=== PATIENT | male | born 1990 | race Caucasian/White ===

== ENCOUNTER → 2016-11-21 | Outpatient (CLI) | payer OTHER ==
[2016-11-21 20:24] LABS: BASO % 0.3 % (0.0-1.0); EOS # 0.1 K/mm3 (0.0-0.50); EOS % 1.7 % (0.0-3.0); LARGE UNSTAINED CELL # 0.1 K/mm3 (0.0-0.4); LARGE UNSTAINED CELL % 1.6 % (0.0-4.0); LYMPH # 1.7 K/mm3 (1.5-6.5); LYMPH % 27.8 % (24.0-44.0); MEAN CORPUSCULAR HEMOGLOBIN 29.6 pg (27.0-33.0); MEAN CORPUSCULAR HGB CONC 32.9 g/dl (32.0-36.5); MEAN CORPUSCULAR VOLUME 89.9 fl (80.0-96.0); MONO # 0.4 K/mm3 (0.0-0.8); NEUTROPHILS # 3.6 K/mm3 (1.8-7.7); NEUTROPHILS % 61.6 % (36.0-66.0); PLATELET COUNT, AUTOMATED 310 k/mm3 (150-450); RED CELL DISTRIBUTION WIDTH 12.8 % (11.5-14.5); WHITE BLOOD COUNT 5.9 K/mm3 (4.0-10.0)
[2016-11-21 20:42] LABS: ALBUMIN 4.1 GM/DL (3.2-5.2); ALBUMIN/GLOBULIN RATIO 1.32 (1.00-1.93); ALKALINE PHOSPHATASE 97 U/L (45-117); ALT/SGPT 56 U/L (12-78); ANION GAP 8 MEQ/L (8-16); AST/SGOT 64 U/L (15-37); BILIRUBIN,TOTAL 0.5 MG/DL (0.2-1.0); BLOOD UREA NITROGEN 9 MG/DL (7-18); CALCIUM LEVEL 8.9 MG/DL (8.5-10.1); CARBON DIOXIDE LEVEL 31 MEQ/L (21-32); CHLORIDE LEVEL 104 MEQ/L (98-107); CREATININE FOR GFR 0.96 MG/DL (0.70-1.30); GLOMERULAR FILTRATION RATE > 60.0 (>60); GLUCOSE, FASTING 87 MG/DL (70-105); POTASSIUM SERUM 4.6 MEQ/L (3.5-5.1); SODIUM LEVEL 143 MEQ/L (136-145); TOTAL PROTEIN 7.2 GM/DL (6.4-8.2)
[2016-11-21 21:23] LABS: ERYTHROCYTE SEDIMENTATION RATE 2 mm/hr (0-15)
== END ==
LOC: M WUC 17:29
PROVIDERS: ATTEND Psychiatry & Neurology Neurology
DX: R55 Syncope and collapse (principal)

== ENCOUNTER → 2020-03-16 | Outpatient (CLI) | payer OTHER ==
[2020-03-16 17:25] LABS: HEMATOCRIT 45.6 % (42.0-52.0); HEMOGLOBIN 15.1 g/dl (13.5-17.5); MEAN CORPUSCULAR HEMOGLOBIN 28.5 pg (27.0-33.0); MEAN CORPUSCULAR HGB CONC 33.1 g/dl (32.0-36.5); PLATELET COUNT, AUTOMATED 382 10^3/uL (150-450); WHITE BLOOD COUNT 6.9 10^3/uL (4.0-10.0)
[2020-03-16 17:52] LABS: ALBUMIN 4.4 GM/DL (3.2-5.2); ALT/SGPT 25 U/L (12-78); BILIRUBIN,TOTAL 0.8 MG/DL (0.2-1.0); BLOOD UREA NITROGEN 9 MG/DL (7-18); C REACTIVE PROTEIN QUANTITATIV < 0.30 MG/DL (0.00-0.30); CALCIUM LEVEL 9.2 MG/DL (8.5-10.1); CARBON DIOXIDE LEVEL 30 MEQ/L (21-32); CHLORIDE LEVEL 100 MEQ/L (98-107); CREATININE FOR GFR 0.89 MG/DL (0.70-1.30); GLOMERULAR FILTRATION RATE > 60.0 (>60); GLUCOSE, FASTING 108 MG/DL (70-100); POTASSIUM SERUM 4.1 MEQ/L (3.5-5.1); SODIUM LEVEL 136 MEQ/L (136-145); TOTAL PROTEIN 7.4 GM/DL (6.4-8.2)
[2020-03-22 16:09] LABS: F002-IgE Milk < 0.10 kU/L (Class 0); F004-IgE Wheat < 0.10 kU/L (Class 0); F013-IgE Peanut < 0.10 kU/L (Class 0); F014-IgE Soybean < 0.10 kU/L (Class 0); F026-IgE Pork < 0.10 kU/L (Class 0); F027-IgE Beef < 0.10 kU/L (Class 0); F245-IgE Egg, Whole < 0.10 kU/L (Class 0); FX02-IgE Food Mix (Sea Foods) Negative (.); TISSUE TRANSGLUTAMINASE IgA <2 U/mL (0-3)
== END ==
LOC: M PLALAB 15:54
PROVIDERS: ATTEND Internal Medicine Gastroenterology
DX: K29.00 Acute gastritis without bleeding (principal); K92.0 Hematemesis; R10.13 Epigastric pain; R10.84 Generalized abdominal pain

== ENCOUNTER 2020-04-26 18:55 | Inpatient (IN) | payer OTHER ==
[2020-04-26] MEDS ORDERED: OLANZapine INTRAMUSCULAR 10MG VIAL ONE (20:19)
[2020-04-26] MEDS ORDERED: NICOTINE 21MG/24HR 1 EA TRANSDERMAL As Ordered ONE (20:19)
[2020-04-26] MEDS ORDERED: NICOTINE 21MG/24HR 1 EA TRANSDERMAL ONE (20:19)
[2020-04-26] MEDS ORDERED: OLANZapine INTRAMUSCULAR 10MG VIAL As Ordered ONE (20:30)
[2020-04-27] MEDS ORDERED: DIVALPROEX 250 MG TAB As Ordered ONE ×3 (10:17→21:47)
[2020-04-27] MEDS ORDERED: NICOTINE 21MG/24HR 1 EA TRANSDERMAL As Ordered ONE (10:17)
[2020-04-27] MEDS ORDERED: OLANZapine ORAL DISINTEGRATING TAB 5MG As Ordered ONE ×3 (10:17→19:34)
[2020-04-27] MEDS ORDERED: LORazepam 1 MG TAB As Ordered ONE (14:07)
[2020-04-27] MEDS ORDERED: diphenhydrAMINE 50MG CAP As Ordered ONE (21:16)
[2020-04-27] MEDS ORDERED: LORazepam 2 MG TAB As Ordered ONE (21:16)
[2020-04-27] MEDS ORDERED: QUEtiapine FUMARATE 50 MG TAB As Ordered ONE (21:48)
[2020-04-28] MEDS ORDERED: OLANZapine ORAL DISINTEGRATING TAB 5MG As Ordered ONE ×3 (00:23→20:23)
[2020-04-28] MEDS ORDERED: DIVALPROEX 250 MG TAB As Ordered ONE (08:02)
[2020-04-28] MEDS ORDERED: NICOTINE 21MG/24HR 1 EA TRANSDERMAL As Ordered ONE (08:02)
[2020-04-28] MEDS ORDERED: LORazepam 1 MG TAB As Ordered ONE (08:02)
[2020-04-28] MEDS ORDERED: QUEtiapine FUMARATE 50 MG TAB As Ordered ONE (20:23)
[2020-04-28] MEDS ORDERED: DIVALPROEX 500 MG TAB As Ordered ONE (20:23)
[2020-04-29] MEDS ORDERED: DIVALPROEX 500 MG TAB As Ordered ONE ×2 (08:00→20:41)
[2020-04-29] MEDS ORDERED: NICOTINE 21MG/24HR 1 EA TRANSDERMAL As Ordered ONE ×2 (08:00→11:42)
[2020-04-29] MEDS ORDERED: OLANZapine ORAL DISINTEGRATING TAB 5MG As Ordered ONE ×4 (08:00→21:14)
[2020-04-29] MEDS ORDERED: QUEtiapine FUMARATE 50 MG TAB As Ordered ONE (20:41)
[2020-04-29] MEDS ORDERED: QUEtiapine FUMARATE 100 MG TAB As Ordered ONE (22:46)
[2020-04-30] MEDS ORDERED: NICOTINE 21MG/24HR 1 EA TRANSDERMAL As Ordered ONE (08:01)
[2020-04-30] MEDS ORDERED: DIVALPROEX 500 MG TAB As Ordered ONE ×2 (08:01→19:55)
[2020-04-30] MEDS ORDERED: OLANZapine 10 MG TAB As Ordered ONE (08:01)
[2020-04-30] MEDS ORDERED: OLANZapine ORAL DISINTEGRATING TAB 5MG As Ordered ONE ×3 (10:15→21:30)
[2020-04-30] MEDS ORDERED: MAALOX 30 ML SUSP *UDC As Ordered ONE (15:41)
[2020-04-30] MEDS ORDERED: QUEtiapine FUMARATE 50 MG TAB As Ordered ONE (19:55)
[2020-05-01] MEDS ORDERED: DIVALPROEX 500 MG TAB As Ordered ONE ×2 (08:08→20:29)
[2020-05-01] MEDS ORDERED: NICOTINE 21MG/24HR 1 EA TRANSDERMAL As Ordered ONE (08:09)
[2020-05-01] MEDS ORDERED: OLANZapine ORAL DISINTEGRATING TAB 5MG As Ordered ONE ×3 (08:09→20:30)
[2020-05-01] MEDS ORDERED: MAALOX 30 ML SUSP *UDC As Ordered ONE ×2 (14:48→19:28)
[2020-05-01] MEDS ORDERED: QUEtiapine FUMARATE 50 MG TAB As Ordered ONE (20:29)
[2020-05-01] MEDS ORDERED: ACETAMINOPHEN TAB 650MG DOSE (2X325MG) As Ordered ONE (20:30)
[2020-05-02] MEDS ORDERED: DIVALPROEX 500 MG TAB As Ordered ONE ×2 (08:53→21:14)
[2020-05-02] MEDS ORDERED: OLANZapine ORAL DISINTEGRATING TAB 5MG As Ordered ONE ×3 (08:53→21:14)
[2020-05-02] MEDS ORDERED: NICOTINE 21MG/24HR 1 EA TRANSDERMAL As Ordered ONE (08:54)
[2020-05-02] MEDS ORDERED: MOM 30ML SUSPENSION UDC As Ordered ONE (11:12)
[2020-05-02] MEDS ORDERED: ARIPiprazole MONOHYDRATE 400 MG INJ (ABILIFY) ONE (13:00)
[2020-05-02] MEDS ORDERED: QUEtiapine FUMARATE 25 MG TAB As Ordered ONE (21:14)
[2020-05-03] MEDS ORDERED: OLANZapine ORAL DISINTEGRATING TAB 5MG As Ordered ONE (08:08)
[2020-05-03] MEDS ORDERED: DIVALPROEX 500 MG TAB As Ordered ONE (08:08)
[2020-05-03] MEDS ORDERED: NICOTINE 21MG/24HR 1 EA TRANSDERMAL As Ordered ONE (08:08)
[2020-05-03] MEDS ORDERED: MAALOX 30 ML SUSP *UDC PO PRN (18:30)
[2020-05-03] MEDS ORDERED: OLANZapine ORAL DISINTEGRATING TAB 5MG PO PRN (18:30)
[2020-05-03] MEDS ORDERED: ACETAMINOPHEN TAB 650MG DOSE (2X325MG) PO PRN (18:30)
[2020-05-03] MEDS ORDERED: MOM 30ML SUSPENSION UDC PO PRN (18:30)
[2020-05-03] MEDS: DIVALPROEX 500 MG TAB PO SCH (20:23)
[2020-05-03] MEDS: QUEtiapine FUMARATE 50 MG TAB PO SCH (20:23)
[2020-05-03] MEDS: OLANZapine ORAL DISINTEGRATING TAB 5MG PO SCH (20:23)
[2020-05-04 06:14] VITALS: BP 135/77
--- NOTE | 2020-05-04 08:41 | MHIPNPDOC ---
[facility] Progress Note Progress Note DATE OF SERVICE: 05/03/20 Subjective HPI: Justin presents today for a follow-up visit. He states he has been in the facility for 6 days and feels he is ready to be discharged. Justin reports he is doing well, and he is waiting for lunch. Justin states he is ready to go back home to his parents as they will take care of him. He notes he found many benefits by being in the [place], but he feels his mental health has been affected by not going outside or being near nature. Justin apologizes for his behavior for the past couple of days and states he has been cooperative and would like to go home as soon as possible. MEDICATIONS: He mentions the Abilify shot he took yesterday seemed to help. Objective Behavior: Less overtly tangential, still circumstantial. Speech: Hyperverbal. Normal volume. Judgement: Poor. Insight: Poor. Assessment F31.10 Bipolar disorder, current episode manic without psychotic features, unspecified Plan Continue Zyprexa and Depakote. Unclear as to why the injectable Abilify was given as he has not been tried on oral, however, a combination could be helpful. Long-acting, I do agree would be useful for him. Will draw Depakote levels and LFTs today inaudible for a bit. Vital Signs Vital Signs Date Time Temp Pulse Resp B/P (MAP) Pulse Ox O2 Delivery O2 Flow Rate FiO2 05/04/20 06:14 96.9 89 18 135/77 (96) Current Medications Current Medications Medications (Trade) Dose Ordered Sig/Isac Route PRN Reason Start Time Stop Time Status Last Admin Dose Admin Acetaminophen (Tylenol Tab) 650 mg Q6H PRN PO PAIN OR DISCOMFORT 05/03/20 18:30 Al Hydrox/Mg Hydrox/Simethicone (Mylanta) 30 ml Q4H PRN PO HEARTBURN/INDIGESTION 05/03/20 18:30 Aripiprazole (AbiLIFY) 5 mg QHS PO 05/03/20 21:00 05/03/20 20:24 Divalproex Sodium (Depakote) 500 mg BID PO 05/03/20 21:00 05/03/20 20:23 Magnesium Hydroxide (Milk Of Magnesia) 30 ml DAILYPRN PRN PO CONSTIPATION 05/03/20 18:30 Nicotine (Nicoderm Cq 21mg) 1 patch DAILY TD 05/04/20 09:00 Olanzapine (ZyPREXA ZYDIS) 5 mg Q6H PRN PO ANXIETY/AGITATION 05/03/20 18:30 Olanzapine (ZyPREXA ZYDIS) 10 mg BID PO 05/03/20 21:00 05/03/20 20:23 Quetiapine Fumarate (SEROquel) 50 mg QHS PO 05/03/20 21:00 05/03/20 20:23 Allergies Coded Allergies: No Known Allergies (Unverified , 05/03/20) SANDRA GODOY DO May 04, 2020 08:41
--- NOTE | 2020-05-04 08:45 | MHIPNPDOC ---
[facility] Progress Note Progress Note DATE OF SERVICE: 05/04/20 Subjective HPI: Justin presents today for a follow-up visit. Justin states he enjoys the steadiness experienced by the medication and is ready for the next step. He denies any suicidal thoughts and is experiencing jitteriness from the medication, which is less than he usually has. Justin states he has an increase in his appetite but a decrease in his sexual appetite. He reports he lost nearly 40 lbs in the past three months from being hospitalized and has gained 20 lbs since he has been in this facility. MEDICATIONS: He states the Abilify shot is a good option for him. Objective Appearance: Well nourished. Appears to be stated age. Well groomed. Behavior: Cooperative with good eye contact. Engaged. Pleasant. Affect: Full range. Appropriate to context. Mood: Appropriately reactive. Euthymic. Generally good. Speech: Normal rate. Normal volume. Spontaneous and Fluid. Motor: No gross motor abnormalities. Cognition: Alert, Attentive, and Oriented to person, place, time. Memory: No gross abnormalities of short or care home memory noted during interview. No formal testing. Thought Form: Linear and goal directed. Thought Content: No thoughts of self harm. No evidence of suicidal ideation. No evidence of aggressive or homicidal ideation. No evidence of delusions. Perception: No perceptual abnormalities noted. Judgement: Intact as evidenced by decision making in the recent past. Insight: Good insight into symptoms and treatment options. Assessment F31.89 Other bipolar disorder Plan Continue Zyprexa and Depakote. Patient is back to a normal mental status exam at this time. Will arrange for discharge tomorrow. ps- depkote levels mildly high, will reduce depkote to 250mg qam and 500mg qhs Vital Signs Vital Signs Date Time Temp Pulse Resp B/P (MAP) Pulse Ox O2 Delivery O2 Flow Rate FiO2 05/04/20 06:14 96.9 89 18 135/77 (96) Current Medications Current Medications Medications (Trade) Dose Ordered Sig/Isac Route PRN Reason Start Time Stop Time Status Last Admin Dose Admin Acetaminophen (Tylenol Tab) 650 mg Q6H PRN PO PAIN OR DISCOMFORT 05/03/20 18:30 Al Hydrox/Mg Hydrox/Simethicone (Mylanta) 30 ml Q4H PRN PO HEARTBURN/INDIGESTION 05/03/20 18:30 Aripiprazole (AbiLIFY) 5 mg QHS PO 05/03/20 21:00 05/03/20 20:24 Divalproex Sodium (Depakote) 500 mg BID PO 05/03/20 21:00 05/03/20 20:23 Magnesium Hydroxide (Milk Of Magnesia) 30 ml DAILYPRN PRN PO CONSTIPATION 05/03/20 18:30 Nicotine (Nicoderm Cq 21mg) 1 patch DAILY TD 05/04/20 09:00 Olanzapine (ZyPREXA ZYDIS) 5 mg Q6H PRN PO ANXIETY/AGITATION 05/03/20 18:30 Olanzapine (ZyPREXA ZYDIS) 10 mg BID PO 05/03/20 21:00 05/03/20 20:23 Quetiapine Fumarate (SEROquel) 50 mg QHS PO 05/03/20 21:00 05/03/20 20:23 Allergies Coded Allergies: No Known Allergies (Unverified , 05/03/20) SANDRA GODOY DO May 04, 2020 08:45
[2020-05-04] MEDS: OLANZapine ORAL DISINTEGRATING TAB 5MG PO SCH ×2 (09:36→20:53)
[2020-05-04] MEDS: NICOTINE 21MG/24HR 1 EA TRANSDERMAL TD SCH (09:36)
[2020-05-04] MEDS: DIVALPROEX 500 MG TAB PO SCH (09:36)
[2020-05-04] MEDS ORDERED: PANT40TA29 PO (09:45)
[2020-05-04] MEDS ORDERED: DICY20TA11 PO (09:45)
[2020-05-04] MEDS ORDERED: HYDR-643 PO (09:45)
[2020-05-04] MEDS ORDERED: ASEN5TA SL (09:45)
[2020-05-04] MEDS ORDERED: SUCR1TA PO (09:45)
[2020-05-04] MEDS ORDERED: CALC500T61 PO (09:45)
[2020-05-04 09:49] LABS: ALBUMIN 3.9 GM/DL (3.2-5.2); BILIRUBIN,DIRECT 0.1 MG/DL (0.0-0.2); BILIRUBIN,TOTAL 0.3 MG/DL (0.2-1.0); TOTAL PROTEIN 6.7 GM/DL (6.4-8.2)
[2020-05-04 16:52] VITALS: BP 132/90
[2020-05-04] MEDS: QUEtiapine FUMARATE 50 MG TAB PO SCH (20:53)
[2020-05-04] MEDS ORDERED: DIVALPROEX 500 MG TAB PO SCH (21:00)
[2020-05-05 06:50] VITALS: BP 144/98
[2020-05-05] MEDS: OLANZapine ORAL DISINTEGRATING TAB 5MG PO SCH (08:45)
[2020-05-05] MEDS: NICOTINE 21MG/24HR 1 EA TRANSDERMAL TD SCH (08:47)
[2020-05-05] MEDS ORDERED: DIVALPROEX 250 MG TAB PO SCH (09:00)
--- NOTE | 2020-05-05 11:49 | MHDSPDOC ---
[facility] Discharge Summary Discharge Summary DATE OF ADMISSION: Apr 27, 2020 at 10:00 DATE OF DISCHARGE:May 05, 2020 at 13:30 DISCHARGE DIAGNOSES: F31.9 Bipolar disorder, unspecified F30.9 Manic episode, unspecified CONSULTANTS INVOLVED:[ None (basic hospitalist screening)] REASON FOR ADMISSION & TREATMENT AND PROGRESS ON THE UNIT : Justin presents today for concerns regarding his inpatient admission. The patient was admitted to the inpatient mental health unit after being found quite delusional and manic. Has a history of bipolar, but recently on Saphris, however appeared to decompensate. He was pleasant although hyper and spoke so quickly he was nearly incoherent. He made solid progress becoming much less tangential and his hyper-verbal nature resolved quite quickly. He returned to normal mental status exam with no major behavioral problems. MEDICATIONS: He was started on Zyprexa 5 mg increased to 10 mg BID. The patient did well, however, it was augmented with Depakote increased to 500 mg BID. His Depakote level is mildly high at above 1, thus it was lowered to 250 mg in the morning and 500 at night. He was additionally based on Abilify 5 mg by one of the covering providers and given Abilify may tune up. Although not ideal, the plan for this patient is to taper to a mono therapy as he seems to favor the Abilify, however, given his very tenuous treatment and the significant need for multiple medications, will continue this as he leaves. DISCHARGE ASSESSMENT[improved] Legal status considerations: The patient at the time of discharge did not meet criteria for involuntary admission/extension due to having a [normal] mental status exam, [fair] insight into the situation, They are engaged in the discharge process, as well as being friendly and amenable in behavioral control and havent been engaging in any observed concerning behavior or ideation recently. They decline voluntary extension/admission at this time and must be discharged in good kurt, as Im unable to make a case for holding the patient against their will. They may have historical risk factors of admissions and other interactions with psychiatry however, those are not modifiable from a clinical perspective. The patient will need to be discharged in good kurt. MENTAL STATUS EXAMINATION ON DISCHARGE: [General: Well dressed with good hygiene Speech: Spontaneous and fluid Thought processes: Linear and logical Thought content: Future orientated Abstract reasoning, and computation: Intact Description of associations: Intact Description of abnormal or psychotic thoughts:Denies any suicidal or homicidal ideation. Denies any auditory or visual hallucinations. Does not appear to be responding to internal stimuli. Does not appear to be endorsing any bizarre or paranoid ideation. Judgment: fair Insight: fair Orientation: Alert and orientated 3 Recent and remote memory: Intact Attention span and concentration: Intact Fund of knowledge: Adequate Mood: "okay" Affect: Euthymic with a full range] PLAN/FOLLOWUP ARRANGEMENTS: Follow up appointments made (PCP and MH in 5 days of D/C date) and safety plan completed. Safety Planning aspects completed prior to discharge [Medication supplies limited to 7 days with 4 refills to prevent accumulation to OD] [Family contact completed, educated on safe practices, instructed on removal and mitigation of dangerous means] [RN reviewed crisis hotline information and other aspects to empower patient to access care in interim before next appointment.] Use of injectable medicines to reduce risk of readmission and noncompliance The amount of time spent in the coordination of care for this patient was approximately 30 minutes. Vital Signs/I&Os Vital Signs Date Time Temp Pulse Resp B/P (MAP) Pulse Ox O2 Delivery O2 Flow Rate FiO2 05/05/20 06:50 97.7 81 16 144/98 (113) Room Air Medications Scheduled Aripiprazole (Abilify) 5 Mg Tablet, 5 MG PO QHS for mood for 7 Days, #7 Aripiprazole Monohydrate (Abilify Maintena) 400 Mg Suser.vial, 400 MG IM Q30D for mood for 30 Days, #400 next due 06/03/20 Divalproex Sodium (Depakote) 500 Mg Tablet.dr, 500 MG PO QHS for mood for 7 Days, #7 Divalproex Sodium (Depakote) 250 Mg Tablet.dr, 250 MG PO QAM for mood for 7 Days, #7 Nicotine (Nicotine Patch) 21 Mg Patch.td24, 1 PATCH TD DAILY for tobacco for 30 Days, #30 Olanzapine (Olanzapine) 20 Mg Tablet, 0.5 TAB PO BID for mood for 30 Days, #5 Allergies Coded Allergies: No Known Allergies (Unverified , 05/03/20) SANDRA GODOY DO May 05, 2020 11:49
[2020-05-05] MEDS ORDERED: ABIL400I IM (11:53)
[2020-05-05] MEDS ORDERED: ABIL1TAB11 PO (11:53)
[2020-05-05] MEDS ORDERED: DEPA1TAB3 PO (11:53)
[2020-05-05] MEDS ORDERED: DEPA250T32 PO (11:53)
[2020-05-05] MEDS ORDERED: OLAN10TA2 PO (11:53)
[2020-05-05] MEDS ORDERED: NICO21PAT TD (11:53)
[2020-05-06] MEDS ORDERED: OLAN20TA14 PO (08:39)
--- NOTE | 2020-06-20 13:10 | MHHPE ---
DATE OF ADMISSION: 04/26/2020 DATE OF EVALUATION: 04/27/2020 I would like to clarify that the entire computer and internet system at [facility] has been down and so the only information that I have available from this patient is that which was done in the emergency room prior to the patient being admitted. Also, the patient was very psychotic with pressured speech, flight of ideas, and basically I could not gather any further information from him. Therefore, the following information is all gathered from the emergency room evaluation. Apparently, the patient was brought in by his parents. He had just been discharged from [facility] about a week ago and quickly decompensated again. The patient, in the emergency room, basically stated that he needed help with narcolepsy and that he wanted to get a refill for his Adderall. Apparently, he had been discharged on Abilify 5 mg nightly, Depakote 250 mg three times a day, Seroquel 50 mg nightly as needed, but it is not clear what the criteria is to take this. 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 According to the parents, he was trashing the house, he was trying to start a bonfire with a can of gas. The family indicated that the patient had a history of bipolar disorder and schizophrenia, that he had not been sleeping. The mother indicated that the patients baseline is never argumentative as he is now. ADDENDUM DATE OF ADMISSION: 04/26/2020 DATE OF EVALUATION: 04/27/2020 PAST PSYCHIATRIC HISTORY: The only information I have is that he had just been discharged from [facility] about a week ago. There is no history of this patient ever having made any suicidal attempts and he was not suicidal or homicidal when he presented to the emergency room. FAMILY HISTORY: Unknown. ABUSE HISTORY: Unknown. SUBSTANCE ABUSE HISTORY: The emergency room records say that he has a history of abusing cannabis, however his toxicology screen was negative. MEDICAL HISTORY: Unknown. MENTAL STATUS EXAMINATION: This patient is alert, he is oriented times three. Eye contact is good. Psychomotor activity is increased. He has pressured speech, flight of ideas. Mood is manic. Affect is labile. He has grandiose delusions. Concentration is poor. Memory is grossly intact. He is not suicidal or homicidal. Insight and judgment is poor. DIAGNOSIS: Bipolar disorder type 1, manic with psychotic symptoms. TREATMENT PLAN: At this point, the patient is very manic and labile. I will go ahead and continue his Abilify 5 mg nightly, Depakote 250 mg three times a day, Seroquel 50 mg nightly as needed. However, I am going to put him on Zyprexa Zydis 10 mg twice a day and I will give him as needed doses of Ativan. MTDD
--- NOTE | 2020-06-24 17:17 | MHIPN ---
DATE: 05/01/2020 HISTORY OF PRESENT ILLNESS: The patient is a 30-year-old male with history of bipolar disorder who is currently treated for this illness at the inpatient mental health unit. He has been hospitalized approximately 1 week and he is beginning to show response to treatment. SUBJECTIVE: The patient reports he wants to go home, he wants to see the sun, wear his own personal clothes, hug his mom. He says he is tired of not being able to go outside, not being able to go out for a cigarette, not being able to wear his own clothes. The patient denies feeling suicidal or homicidal, he denies auditory, visual, or tactile hallucinations, and denies thought delusions. OBJECTIVE (MENTAL STATUS EXAMINATION): The patient was dressed in hospital clothes, his nails on one hand were painted a yellow tone and on the other hand they were like pinkish-lavender, he was pleasant and cooperative, friendly, had good eye contact. His speech is still pressured and rapid, tangential and circumstantial, it is continuous and fluent. His thought process is tangential and circumstantial, his thought content is positive for anxious thoughts but is negative for suicidal or homicidal thoughts. He denies thought delusions. He denies auditory, visual, or tactile hallucinations and he was not seen responding to internal stimuli. His insight and judgment are still limited because he is still ill but he does not see it that way. ASSESSMENT AND PLAN: The patient is still labile, he is very pleasant most of the time, he smiles and laughs frequently but he also cries very easily, he becomes tearful because he says he misses his mom and his house and his parents. At times, he becomes irritable but not violent. Overall, the patient is having a good response to medications and compared to how he was observed last week, he is less hyperactive, his speech is less pressured, although he still has racing thoughts and he is still not insightful about how ill he still is. He wanted to be discharged today, but I told him he has to be patient and he has to wait to improve. Yesterday, he wanted to be discharged and he told me he had been told by somebody else that he could be discharged yesterday. Today, he told me that somebody had told him that he could be discharged today and possibly tomorrow he will say the same thing because that is what he really wants, but he is still not ready for discharge. Will continue to monitor and adjust medications accordingly. EFREM
--- NOTE | 2020-07-01 07:36 | MHIPN ---
DATE: 05/02/2020 HISTORY OF PRESENT ILLNESS: The patient remains quite manic with very pressured speech and he is very grandiose talking about how being in the hospital has been my very best working vacation. He talks about how he has been working very hard to stop his pressured speech, etc. MENTAL STATUS EXAM: This patient is alert and oriented times 3. Speech is pressured with flight of ideas. His mood is manic and affect is appropriate to mood and the patient has grandiose delusions and he denies any suicidal or homicidal ideations. Concentration is poor. Memory is intact. Insight and judgment poor. DIAGNOSIS: Unspecified psychiatric disorder, rule out bipolar disorder. TREATMENT PLAN: At this point the patient remains quite manic. I did review the medications that he was on and he is on: * Abilify 5 mg at bedtime. * Seroquel 50 mg at bedtime. * Zyprexa 10 mg twice a day p.r.n. * Depakote 500 mg twice a day. It seems from the patients history that he became noncompliant with his treatment after his first psychiatric hospitalization recently and I recommended and the patient agreed to start on Abilify Maintena 400 IM and we will give him his first dose today. MTDD
[2020-07-12 14:18] LABS: BASO % 0.6 % (0.0-1.0); EOS # 0.1 10^3/uL (0.0-0.5); EOS % 1.7 % (0.0-3.0); HEMATOCRIT 35.4 % (42.0-52.0); HEMOGLOBIN 11.8 g/dl (13.5-17.5); LYMPH # 2.1 10^3/uL (1.5-5.0); LYMPH % 39.3 % (24.0-44.0); MEAN CORPUSCULAR HEMOGLOBIN 28.9 pg (27.0-33.0); MEAN CORPUSCULAR HGB CONC 33.3 g/dl (32.0-36.5); MEAN CORPUSCULAR VOLUME 86.8 fl (80.0-96.0); MONO # 0.5 10^3/uL (0.0-0.8); MONO % 8.6 % (0.0-5.0); NEUTROPHILS # 2.7 10^3/uL (1.5-8.5); NEUTROPHILS % 49.1 % (36.0-66.0); PLATELET COUNT, AUTOMATED 325 10^3/uL (150-450); RED BLOOD COUNT 4.08 10^6/uL (4.30-6.10); WHITE BLOOD COUNT 5.5 10^3/uL (4.0-10.0)
[2020-07-15 13:57] LABS: ACETAMINOPHEN LEVEL < 2.0 UG/ML (10.0-30.0); ALBUMIN 4.1 GM/DL (3.2-5.2); ALT/SGPT 20 U/L (12-78); BILIRUBIN,DIRECT < 0.1 MG/DL (0.0-0.2); BILIRUBIN,TOTAL 0.2 MG/DL (0.2-1.0); BLOOD UREA NITROGEN 12 MG/DL (7-18); CARBON DIOXIDE LEVEL 26 MEQ/L (21-32); CHLORIDE LEVEL 108 MEQ/L (98-107); CREATININE FOR GFR 0.74 MG/DL (0.70-1.30); ETHYL ALCOHOL (ETHANOL) 0.007 % (0.000-0.010); GLOMERULAR FILTRATION RATE > 60.0 (>60); GLUCOSE, FASTING 88 MG/DL (70-100); SALICYLATE LEVEL 2.4 MG/DL (5.0-30.0); SODIUM LEVEL 140 MEQ/L (136-145); TOTAL PROTEIN 6.7 GM/DL (6.4-8.2)
[2020-07-15 13:59] LABS: AMPHETAMINES LEVEL URINE NEGATIVE (NEGATIVE); BARBITURATES URINE NEGATIVE (NEGATIVE); BENZODIAZEPINES URINE NEGATIVE (NEGATIVE); CANNABINOIDS URINE NEGATIVE (NEGATIVE); COCAINE METABOLITE URINE NEGATIVE (NEGATIVE); METHADONE URINE NEGATIVE (NEGATIVE); OPIATES URINE NEGATIVE (NEGATIVE); PHENCYCLIDINE URINE NEGATIVE (NEGATIVE)
== END 2020-05-05 13:30 | disposition home or self-care (01) | DRG 753 ==
LOC: M ED 18:55 → M PSY 04-27 10:00
PROVIDERS: ADMIT Psychiatry & Neurology Addiction Medicine; ATTEND Psychiatry & Neurology Addiction Medicine
DX: F31.2 Bipolar disorder, current episode manic severe with psychotic features (principal); Z79.899 Other long term (current) drug therapy

== ENCOUNTER → 2020-05-27 | Outpatient (CLI) | payer OTHER ==
[~2020-05-27] MED LIST: ABIL1TAB11 PO; ABIL400I IM; ASEN5TA SL; CALC500T61 PO; DEPA1TAB3 PO; DEPA250T32 PO; DICY20TA11 PO; HYDR-643 PO; NICO21PAT TD; OLAN10TA2 PO; OLAN20TA14 PO; PANT40TA29 PO; SUCR1TA PO
[2020-05-27 14:38] LABS: ALBUMIN 3.7 GM/DL (3.2-5.2); BILIRUBIN,DIRECT 0.1 MG/DL (0.0-0.2); BILIRUBIN,TOTAL 0.3 MG/DL (0.2-1.0); TOTAL PROTEIN 6.7 GM/DL (6.4-8.2); VALPROIC ACID (DEPAKOTE) 75.5 UG/ML (50.0-100.0)
== END ==
LOC: M PLALAB 10:36
PROVIDERS: ATTEND Psychiatry & Neurology Psychiatry
DX: F31.12 Bipolar disorder, current episode manic without psychotic features, moderate (principal)